=== PATIENT | male | born 1975 | race Caucasian/White ===

== ENCOUNTER → 2019-10-30 | Outpatient (CLI) | payer OTHER ==
--- NOTE | 2019-10-30 11:16 | XR ---
EXAMINATION TYPE: XR chest 2V DATE OF EXAM: 10/30/2019 HISTORY: R61 NIGHT SWEATS. REFERENCE: NONE. FINDINGS: The lungs are clear. Pleural space are clear. The heart is not enlarged. IMPRESSION: NO ACTIVE INTRATHORACIC DISEASE.
== END | disposition home or self-care (01) ==
LOC: RADXRMAIN 10:17
PROVIDERS: ATTEND Family Medicine
DX: R61 Generalized hyperhidrosis (principal)
CPT/HCPCS: 71046

== ENCOUNTER 2019-12-31 12:33 | Emergency (ER) | payer OTHER ==
[2019-12-31 12:40] VITALS: TEMP 98.3
[2019-12-31] MEDS ORDERED: ASPIRIN 81 MG PO STA (13:08)
[2019-12-31 13:23] LABS: Basophils % (A) 0 %; Eosinophils % (A) 0 %; HCT 50.4 % (39.0-53.0); HGB 16.9 gm/dL (13.0-17.5); Lymphocytes # (A) 1.2 k/uL (1.0-4.8); Lymphocytes % (A) 12 %; MCH 30.6 pg (25.0-35.0); MCHC 33.6 g/dL (31.0-37.0); MCV 91.1 fL (80.0-100.0); Mean Platelet Volume 8.9; Monocytes # (A) 0.4 k/uL (0-1.0); Monocytes % (A) 4 %; Neutrophils # (A) 8.9 k/uL (1.3-7.7); Neutrophils % (A) 84 %; Platelet Count 240 k/uL (150-450); RBC 5.53 m/uL (4.30-5.90); RDW 12.2 % (11.5-15.5); WBC 10.6 k/uL (3.8-10.6)
--- NOTE | 2019-12-31 13:26 | ED ---
Chest Pain HPI - General Chief Complaint: Chest Pain Stated Complaint: chest pain Time Seen by Provider: 12/31/19 13:08 Source: patient Mode of arrival: ambulatory Limitations: no limitations - History of Present Illness Initial Comments: Patient is a 44-year-old male presenting to emergency Department with a chief complaint of chest pain. Patient reports symptoms began about one week ago and have been persistent. Patient reports generalized achiness throughout the whole chest. Patient states there is a pressure like "a cinder block on his chest". Patient denies any shortness of breath or dyspnea on exertion. Denies any alleviating or aggravating factors. States about one week ago he also developed upper respiratory symptoms lasted about 2 days and have since resolved. Patient denies any lightheadedness or dizziness. Denies any diaphoretic episodes. Denies any history of hypertension, dyslipidemia, diabetes mellitus, or family history of early cardiac related . - Related Data Allergies Allergy/AdvReac Type Severity Reaction Status Date / Time No Known Allergies Allergy Verified 12/31/19 13:14 Review of Systems ROS Statement: Those systems with pertinent positive or pertinent negative responses have been documented in the HPI. ROS Other: All systems not noted in ROS Statement are negative. EKG Findings - EKG Comments: EKG Findings:: normal sinus rhythm, no ST changes. Ventricular rate 83, TN 140, QRS 82, QTC 448 Past Medical History Past Medical History: No Reported History History of Any Multi-Drug Resistant Organisms: None Reported Past Surgical History: No Surgical Hx Reported Past Psychological History: No Psychological Hx Reported Smoking Status: Never smoker Past Alcohol Use History: Occasional Past Drug Use History: None Reported General Exam Limitations: no limitations General appearance: alert, in no apparent distress Head exam: Present: atraumatic, normocephalic, normal inspection Eye exam: Present: normal appearance, PERRL Pupils: Present: normal accommodation ENT exam: Present: normal exam, normal oropharynx, mucous membranes moist, TM's normal bilaterally, normal external ear exam Neck exam: Present: normal inspection, full ROM Respiratory exam: Present: normal lung sounds bilaterally. Absent: respiratory distress, wheezes, rales Cardiovascular Exam: Present: regular rate, normal rhythm, normal heart sounds Extremities exam: Present: normal inspection, full ROM Back exam: Present: normal inspection, full ROM Neurological exam: Present: alert, oriented X3 Psychiatric exam: Present: normal affect, normal mood Skin exam: Present: warm, dry, intact, normal color Course Vital Signs 12/31/19 12/31/19 12/31/19 12:36 12:40 12:47 Temperature 98.3 F Pulse Rate 97 92 Respiratory 16 18 17 Rate Blood Pressure 145/73 O2 Sat by Pulse 98 Oximetry 12/31/19 12/31/19 12/31/19 13:00 13:20 13:40 Temperature Pulse Rate 96 80 78 Respiratory 20 16 17 Rate Blood Pressure 167/93 154/88 142/90 O2 Sat by Pulse 99 95 Oximetry 12/31/19 12/31/19 12/31/19 14:00 14:20 14:40 Temperature Pulse Rate 90 76 76 Respiratory 17 18 17 Rate Blood Pressure 142/90 135/76 132/88 O2 Sat by Pulse 95 96 96 Oximetry 12/31/19 12/31/19 12/31/19 15:00 15:30 16:00 Temperature Pulse Rate 70 63 78 Respiratory 16 16 16 Rate Blood Pressure 132/88 134/73 127/80 O2 Sat by Pulse 95 96 97 Oximetry 12/31/19 12/31/19 12/31/19 16:30 17:00 17:01 Temperature Pulse Rate 74 69 Respiratory 18 20 20 Rate Blood Pressure 139/85 135/75 135/75 O2 Sat by Pulse 98 98 98 Oximetry Chest Pain MDM - Differential Diagnosis ACS, Pleurisy-Other - MDM Patient is a 44-year-old male presenting to emergency Department with a chief complaint of chest pain. Physical examination is unremarkable. Patient has atypical chest with atypical features. Chest x-ray was unremarkable. EKG shows normal sinus rhythm. Initial troponin is negative. Repeat troponins are negative. Patient has a heart score of 1. Patient advised to follow-up with a domestic technician and primary care. Return parameters thoroughly discussed with patient was observed sitting agreeable. Case discussed with physician. Disposition Clinical Impression: Chest pain Disposition: HOME SELF-CARE Condition: Stable Instructions (If sedation given, give patient instructions): Chest Pain (ED) Additional Instructions: Follow-up with the domestic technician. Return to emergency department if symptoms worsen. Is patient prescribed a controlled substance at d/c from ED?: No Referrals: Jose Bhatt MD [Primary Care Provider] - 1-2 days Melani Araya MD [STAFF PHYSICIAN] - 1-2 days Time of Disposition: 16:29
[2019-12-31 13:32] LABS: ALT 27 U/L (4-49); AST 32 U/L (17-59); African American GFR (CKD) >90 (>60 ml/min/1.73 sqM); Albumin 4.9 g/dL (3.5-5.0); Alkaline Phosphatase 77 U/L (38-126); Anion Gap 13 mmol/L; Blood Urea Nitrogen 13 mg/dL (9-20); Calcium 9.4 mg/dL (8.4-10.2); Carbon Dioxide 24 mmol/L (22-30); Chloride 102 mmol/L (98-107); Glucose 109 mg/dL (74-99); Non-African American GFR(CKD) >90 (>60 ml/min/1.73 sqM); Potassium 4.1 mmol/L (3.5-5.1); Sodium 139 mmol/L (137-145); Total Bilirubin 0.5 mg/dL (0.2-1.3); Total Protein 8.3 g/dL (6.3-8.2)
[2019-12-31 13:34] LABS: INR 0.9 (<1.2)
--- NOTE | 2019-12-31 13:34 | XR ---
EXAMINATION TYPE: XR chest 2V DATE OF EXAM: 12/31/2019 COMPARISON: Chest x-ray October 30, 2019. HISTORY: Chest pain. TECHNIQUE: Frontal and lateral views of the chest are obtained. FINDINGS: Overlying EKG leads are seen on current study. There is no focal air space opacity, pleural effusion, or pneumothorax seen. The cardiac silhouette size is within normal limits. The osseous structures are intact. IMPRESSION: No acute process. No significant change from prior.
[2019-12-31 13:35] LABS: Prothrombin Time 9.5 sec (9.0-12.0)
[2019-12-31 17:02] VITALS: BP 135/75; PULSE 69; RESP 20
== END 2019-12-31 17:03 | disposition home or self-care (01) ==
LOC: EC 12:33
DX: R07.9 Chest pain, unspecified (principal)
CPT/HCPCS: 36415; 71046; 80053; 83735; 84484; 85025; 85610; 85730; 93005; 99285